=== PATIENT | female | born 1995 | race Caucasian/White ===

== ENCOUNTER 2021-12-24 09:04 | Emergency (ER) | payer MEDICAID ==
[~2021-12-24] VITALS: Ht 152.9 cm; Wt 62.7 kg
[2021-12-24 09:10] VITALS: BP 129/63
--- NOTE | 2021-12-24 09:24 | NUR ---
PATIENT AMBULATED TO BED 5.
--- NOTE | 2021-12-24 09:35 | NUR ---
DR REYNOSO AT BEDSIDE.
--- NOTE | 2021-12-24 09:38 | NUR ---
26 Y/O F C/O ABD PAIN 2/10 FOR TWO DAYS. NAUSEA AND WEAKNESS ALSO FOR 2 DAYS. NKA OR PMH
[2021-12-24] MEDS ORDERED: CEPH250C16 PO (09:45)
[2021-12-24] MEDS ORDERED: IBUP-1842 PO (09:45)
--- NOTE | 2021-12-24 09:46 | NUR ---
26 Y/O FEMALE BIB SELF C/O RLQ PAIN. PT HAS HAD NAUSEA AND FEELS WEAK AND "SLEEPY" X 2 DAYS. PT DENIES VOMITING, DIARRHEA, CONSTIPATION. PT DENIES DYURIA, VAGINAL BLEEDING OR DISCHARGE. PT DENIES FEVER, CHILLS, SOB.PT DENIES TAKING ANY MEDS PRIOR TO ARRIVAL. PT A&O X4. BED IN LOWEST POSITION. BED RAIL X1. PMH: DENIES ALLERGIES: DENIES MEDS: DENIES
[2021-12-24 09:58] VITALS: BP 129/63
--- NOTE | 2021-12-24 09:59 | NUR ---
Patient discharged with v/s stable. Written and verbal after care instructions given and explained. Patient alert, oriented and verbalized understanding of instructions. Ambulatory with steady gait. All questions addressed prior to discharge. ID band removed. Patient advised to follow up with PMD. Rx of CEPHALEXIN, IBUPROFEN given. Patient educated on indication of medication including possible reaction and side effects. Opportunity to ask questions provided and answered.
== END 2021-12-24 09:58 | disposition home or self-care (01) ==
LOC: MED 09:04
DX: N39.0 Urinary tract infection, site not specified (principal)
CPT/HCPCS: 81002; 81025; 99283